=== PATIENT | female | born 1965 | race Caucasian/White ===

== ENCOUNTER → 2019-12-13 | Outpatient (CLI) | payer MEDICAID ==
--- NOTE | 2019-12-13 14:38 | CT ---
EXAMINATION TYPE: CT abdomen pelvis w con DATE OF EXAM: 12/13/2019 COMPARISON: None HISTORY: Left sided abdominal pain and microscopic hematuria. CT DLP: 1023 mGycm Automated exposure control for dose reduction was used. CONTRAST: CT scan of the abdomen pelvis is performed with IV Contrast, patient injected with 100 mL of Isovue M 300. FINDINGS- LUNG BASES- No significant abnormality is appreciated. LIVER/GB-hypodensities involving the liver are subcentimeter. 2 small to characterize. Statistically most likely related to cysts. There may be mild wall thickening involving the gallbladder correlate c linically. Report called to referring clinician. PANCREAS- No gross abnormality is seen. SPLEEN- No gross abnormality is seen. ADRENALS- No gross abnormality is seen. KIDNEYS/BLADDER-tiny hypodensities involving the left kidney upper pole too small to characterize. No hydronephrosis or nephrolithiasis. BOWEL-bowel gas pattern nonspecific. Retained fecal debris. LYMPH NODES- No greater than 1cm abdominal or pelvic lymph nodes areappreciated. OSSEOUS STRUCTURES- No significant abnormality is seen. OTHER- aorta of normal caliber. No free fluid. Mild atherosclerotic changes. IMPRESSION- 1. No hydronephrosis or nephrolithiasis. There is a subcentimeter left left renal lesion too small to characterize. 2. Gallbladder wall may be slightly thickened correlate with ultrasound.
== END | disposition home or self-care (01) ==
LOC: RADCTMAIN 12:34
PROVIDERS: ATTEND Family Medicine
DX: R10.12 Left upper quadrant pain (principal); R10.32 Left lower quadrant pain; R31.9 Hematuria, unspecified
CPT/HCPCS: 74177; Q9967 ×2

== ENCOUNTER → 2020-01-03 | Outpatient (CLI) | payer MEDICAID ==
--- NOTE | 2020-01-04 14:04 | CT ---
EXAMINATION TYPE: CT urogram wo/w con DATE OF EXAM: 01/03/2020 COMPARISON: 12/13/2019 INDICATION: HEMATURIA DLP: 2269.5 mGycm, Automated exposure control for dose reduction was used. CONTRAST: 100 mL of Isovue 300. Study performed without Oral Contrast TECHNIQUE: Axial images were obtained from above the diaphragm to the pubic rami in the axial plane a t 5 mm thick sections. Three-D Reconstructed form separately by the technologist and presented image s are reviewed on the computer in the coronal plane. FINDINGS: Limited CT sections are obtained the lung bases. The lung bases are clear. CT ABDOMEN: Liver: Normal Spleen: Normal Pancreas: Normal Adrenal glands: The adrenal glands are normal. Gallbladder: Normal Kidneys: No masses are evident. No hydronephrosis is present. No cysts are present. Delayed images were obtained through the kidneys, which remain unremarkable. Three-D reconstructed images are revie wed. Ureters follow a normal sequential caliber course and contour to the urinary bladder. The portio n of the urinary bladder filled with contrast appears unremarkable. Aorta: Normal Inferior vena cava: Normal. CT PELVIS: Diverticulosis without acute diverticulitis is within the sigmoid colon. Study is without oral contra st limiting the bowel evaluation. Appendix: Normal as visualized. Urinary bladder: Normal. Genitourinary structures: Uterus and ovaries are absent Osseous structures: No suspicious lytic or sclerotic lesions. IMPRESSIONS: 1. Kidneys, ureters and bladder on Three-D reconstructed images are unremarkable. No suspicious abno rmality to account for hematuria by CT urogram. 2. Diverticulosis without acute diverticulitis.
== END | disposition home or self-care (01) ==
LOC: RADCTMAIN 16:48
PROVIDERS: ATTEND Urology
DX: K57.90 Diverticulosis of intestine, part unspecified, without perforation or abscess without bleeding (principal); R31.0 Gross hematuria; Z88.0 Allergy status to penicillin
CPT/HCPCS: 74178; 74400; Q9967

== ENCOUNTER 2023-04-19 19:59 | Emergency (ER) | payer MEDICAID ==
[2023-04-19 20:30] VITALS: BP 148/87; PULSE 79; RESP 18; TEMP 98
[2023-04-19 21:46] LABS: Basophils % (A) 0 %; Eosinophils # (A) 0.1 k/uL (0-0.7); Eosinophils % (A) 1 %; HCT 42.7 % (34.0-46.0); HGB 14.4 gm/dL (11.4-16.0); Lymphocytes # (A) 2.4 k/uL (1.0-4.8); Lymphocytes % (A) 41 %; MCHC 33.7 g/dL (31.0-37.0); MCV 94.8 fL (80.0-100.0); Mean Platelet Volume 8.7; Monocytes # (A) 0.3 k/uL (0-1.0); Monocytes % (A) 6 %; Neutrophils % (A) 51 %; Platelet Count 222 k/uL (150-450); RBC 4.51 m/uL (3.80-5.40); RDW 12.3 % (11.5-15.5); WBC 5.8 k/uL (3.8-10.6)
[2023-04-19 22:14] LABS: ALT 17 U/L (4-34); AST 25 U/L (14-36); African American GFR (CKD) >90 (>60 ml/min/1.73 sqM); Albumin 4.4 g/dL (3.5-5.0); Alkaline Phosphatase 63 U/L (38-126); Amylase 82 U/L (30-110); Anion Gap 10 mmol/L; Blood Urea Nitrogen 10 mg/dL (7-17); Calcium 9.7 mg/dL (8.4-10.2); Carbon Dioxide 25 mmol/L (22-30); Chloride 103 mmol/L (98-107); Glucose 90 mg/dL (74-99); Lipase 124 U/L (23-300); Non-African American GFR(CKD) 87 (>60 ml/min/1.73 sqM); Potassium 3.9 mmol/L (3.5-5.1); Sodium 138 mmol/L (137-145); Total Bilirubin 0.6 mg/dL (0.2-1.3); Total Protein 7.6 g/dL (6.3-8.2)
--- NOTE | 2023-04-20 13:22 | CT ---
EXAM: CT Abdomen and Pelvis With Intravenous Contrast CLINICAL HISTORY: Right upper quadrant pain for 2 weeks. TECHNIQUE: Axial computed tomography images of the abdomen and pelvis with intravenous contrast. CTDI is 15.3 mGy and DLP is 698.2 mGy-cm. This CT exam was performed using one or more of the following dose reduction techniques: automated exposure control, adjustment of the mA and/or kV according to patient size, and/or use of iterative reconstruction technique. COMPARISON: No relevant prior studies available. FINDINGS: ABDOMEN: Liver: Few cysts. Gallbladder and bile ducts: Unremarkable. Pancreas: Unremarkable. Spleen: Unremarkable. Adrenals: Unremarkable. Kidneys and ureters: No hydronephrosis. Stomach and bowel: No bowel obstruction. No bowel wall thickening. Hyperemic bowel loops are seen. PELVIS: Appendix: No evidence of appendicitis. Bladder: Unremarkable. Reproductive: Unremarkable. ABDOMEN and PELVIS: Intraperitoneal space: Unremarkable. Bones/joints: No acute fractures. Soft tissues: Unremarkable. Vasculature: No abdominal aortic aneurysm. Lymph nodes: No enlarged lymph nodes. IMPRESSION: Hyperemic bowel loops are seen. Correlate with enteritis.
== END 2023-04-20 03:30 | disposition home or self-care (01) ==
LOC: EC 19:59
DX: K52.9 Noninfective gastroenteritis and colitis, unspecified (principal)
CPT/HCPCS: 99284 ×2; 36415; 93005; 80053; 82150; 83690; 85025; 74177; Q9967

== ENCOUNTER 2023-08-19 09:49 | Emergency (ER) | payer MEDICAID ==
[2023-08-19 10:02] VITALS: TEMP 97.8
--- NOTE | 2023-08-19 10:51 | ED ---
General Adult HPI - General Chief complaint: Abdominal Pain Stated complaint: Covid-upper abd pain Time Seen by Provider: 08/19/23 10:17 Source: patient, RN notes reviewed Mode of arrival: ambulatory Limitations: no limitations - History of Present Illness Initial comments: Patient is a pleasant 58-year-old female present to the emergency department wit h concerns for abdominal discomfort. Onset of symptoms was a couple of days ago. Patient was diagnosed with COVID-19 infection 4 days ago, symptoms onset 5 days ago. Patient was started on Paxlovid as well as steroids. Patient has epigastric/right upper abdominal discomfort. - Related Data Home Medications Medication Instructions Recorded Confirmed methIMAzole [Tapazole] 5 mg PO QAM 05/13/16 05/13/16 Allergies Allergy/AdvReac Type Severity Reaction Status Date / Time Penicillins Allergy Rash/Hives Verified 08/19/23 09:59 Review of Systems ROS Statement: Those systems with pertinent positive or pertinent negative responses have been documented in the HPI. ROS Other: All systems not noted in ROS Statement are negative. Constitutional: Denies: fever Eyes: Denies: eye pain ENT: Denies: ear pain Respiratory: Denies: cough Cardiovascular: Denies: chest pain Endocrine: Denies: fatigue Gastrointestinal: Reports: as per HPI, abdominal pain. Denies: nausea, vomiting, diarrhea, constipation Genitourinary: Denies: dysuria Past Medical History Past Medical History: Thyroid Disorder Additional Past Medical History / Comment(s): COLON POLYPS History of Any Multi-Drug Resistant Organisms: None Reported Past Surgical History: Section, Hysterectomy Additional Past Surgical History / Comment(s): OPENING UP TEAR DUCTS. Past Anesthesia/Blood Transfusion Reactions: Postoperative Nausea & Vomiting (PONV) Past Psychological History: No Psychological Hx Reported Smoking Status: Never smoker Past Alcohol Use History: Occasional Past Drug Use History: None Reported General Exam Limitations: no limitations General appearance: alert, in no apparent distress Head exam: Present: normocephalic Eye exam: Present: normal appearance Neck exam: Present: normal inspection Respiratory exam: Present: normal lung sounds bilaterally Cardiovascular Exam: Present: regular rate, normal rhythm GI/Abdominal exam: Present: soft, tenderness (Mild epigastric tenderness), normal bowel sounds. Absent: distended, pulsatile mass Extremities exam: Present: normal inspection Neurological exam: Present: alert Psychiatric exam: Present: normal affect, normal mood Skin exam: Present: normal color Course Vital Signs 08/19/23 08/19/23 09:57 12:11 Temperature 97.8 F Pulse Rate 80 50 L Respiratory 20 18 Rate Blood Pressure 125/75 142/78 O2 Sat by Pulse 98 97 Oximetry Medical Decision Making - Medical Decision Making Was pt. sent in by a medical professional or institution ([facility], PATCH W[employer]ER, urgent care, hospital, or retirement...) When possible be specific @ -No Did you speak to anyone other than the patient for history (EMS, parent, family, police, friend...)? What history was obtained from this source @ -No Did you review nursing and triage notes (agree or disagree)? Why? @ -I reviewed and agree with nursing and triage notes Were old charts reviewed (outside hosp., previous admission, EMS record, old EKG, old radiological studies, urgent care reports/EKG's, retirement records)? Report findings @ -No old charts were reviewed Differential Diagnosis (chest pain, altered mental status, abdominal pain women, abdominal pain men, vaginal bleeding, weakness, fever, dyspnea, syncope, headache, dizziness, GI bleed, back pain, seizure, CVA, palpatations, mental health, musculoskeletal)? @ -Differential Abdominal Pain Women: Appendicitis, Cholecystitis, diverticulosis, ischemic bowel, pancreatitis, hepatitis, UTI, gastroenteritis, AAA, incarcerated hernia, bowel obstruction, constipation, inflammatory bowel, hepatitis, peptic ulcer disease, splenic infarction, perforated viscus, vulvitis, ovarian torsion, PID, kidney stone, placenta abruption, this is not meant to be an all-inclusive list EKG interpreted by me (3pts min.). @ -As above X-rays interpreted by me (1pt min.). @ -None done CT interpreted by me (1pt min.). @ -CT scan does show wall thickening. Gallbladder. U/S interpreted by me (1pt. min.). @ -None done What testing was considered but not performed or refused? (CT, X-rays, U/S, labs)? Why? @ -None What meds were considered but not given or refused? Why? @ -None Did you discuss the management of the patient with other professionals (professionals i.e. [facility], PATCH WASHER, lab, RT, psych nurse, case management social worker, gearman, teacher, airframe technical officer, registered nurse hh case manager)? Give summary @ -Case discussed with on-call surgeon Dr. Onofre who did come evaluate patient. Was smoking cessation discussed for >3mins.? @ -No Was critical care preformed (if so, how long)? @ -No Were there social determinants of health that impacted care today? How? (Homelessness, low income, unemployed, alcoholism, drug addiction, transportation, low edu. Level, literacy, decrease access to med. care, penitentiary, rehab)? @ -No Was there de-escalation of care discussed even if they declined (Discuss DNR or withdrawal of care, Hospice)? DNR status @ -No What co-morbidities impacted this encounter? (DM, HTN, Smoking, COPD, CAD, Cancer, CVA, ARF, Chemo, Hep., AIDS, mental health diagnosis, sleep apnea, morbid obesity)? @ -None Was patient admitted / discharged? Hospital course, mention meds given and route, prescriptions, significant lab abnormalities, going to OR and other pertinent info. @ -Patient reevaluated and feels much better. Mild tenderness in evaluation. Patient updated on CT results. Patient states she does have some chronic g allbladder problems. Patient does not want to stay or have surgery at this point. Patient was seen by surgeon and still feels the same. Patient is requesting discharge home Undiagnosed new problem with uncertain prognosis? @ -No Drug Therapy requiring intensive monitoring for toxicity (Heparin, Nitro, Insulin, Cardizem)? @ -No Were any procedures done? @ -No Diagnosis/symptom? @ -Biliary colic Acute, or Chronic, or Acute on Chronic? @ -Acute Uncomplicated (without systemic symptoms) or Complicated (systemic symptoms)? @ -Default Side effects of treatment? @ -No Exacerbation, Progression, or Severe Exacerbation? @ -No Poses a threat to life or bodily function? How? (Chest pain, [place], [place], pneumonia, PE, COPD, DKA, ARF, appy, cholecystitis, CVA, Diverticulitis, Homicidal, Suicidal, threat to staff... and all critical care pts) @ -No - Lab Data Result diagrams: 08/19/23 11:04 08/19/23 11:04 Lab Results 08/19/23 08/19/23 08/19/23 Range/Units 11:04 11:04 11:04 WBC 8.8 (3.8-10.6) k/uL RBC 4.39 (3.80-5.40) m/uL Hgb 13.8 (11.4-16.0) gm/dL Hct 40.8 (34.0-46.0) % MCV 92.8 (80.0-100.0) fL MCH 31.3 (25.0-35.0) pg MCHC 33.7 (31.0-37.0) g/dL RDW 12.3 (11.5-15.5) % Plt Count 245 (150-450) k/uL MPV 8.8 Neutrophils % 90 % Lymphocytes % 6 % Monocytes % 3 % Eosinophils % 1 % Basophils % 0 % Neutrophils # 7.9 H (1.3-7.7) k/uL Lymphocytes # 0.5 L (1.0-4.8) k/uL Monocytes # 0.3 (0-1.0) k/uL Eosinophils # 0.1 (0-0.7) k/uL Basophils # 0.0 (0-0.2) k/uL PT 10.5 (10.0-12.5) sec INR 0.9 (<1.2) APTT 22.2 (22.0-30.0) sec Sodium 137 (137-145) mmol/L Potassium 3.7 (3.5-5.1) mmol/L Chloride 105 (98-107) mmol/L Carbon Dioxide 25 (22-30) mmol/L Anion Gap 7 mmol/L BUN 24 H (7-17) mg/dL Creatinine 0.84 (0.52-1.04) mg/dL Est GFR (CKD-EPI)AfAm 89 (>60 ml/min/1.73 sqM) Est GFR (CKD-EPI)NonAf 77 (>60 ml/min/1.73 sqM) Glucose 162 H (74-99) mg/dL Calcium 8.9 (8.4-10.2) mg/dL Total Bilirubin 0.3 (0.2-1.3) mg/dL AST 19 (14-36) U/L ALT 16 (4-34) U/L Alkaline Phosphatase 59 (38-126) U/L Total Protein 6.4 (6.3-8.2) g/dL Albumin 3.7 (3.5-5.0) g/dL Amylase 103 (30-110) U/L Lipase 474 H (23-300) U/L Disposition Clinical Impression: Biliary colic Disposition: HOME SELF-CARE Condition: Stable Instructions (If sedation given, give patient instructions): Abdominal Pain (ED), Biliary Colic (ED) Additional Instructions: Please do follow-up with primary care physician Monday. Please also follow-up with surgeon on Monday. Return for increased pain, fever, vomiting, worsening or changing symptoms or any other concerns. Is patient prescribed a controlled substance at d/c from ED?: No Referrals: Luis Kendall DO [Primary Care Provider] - 1-2 days Marcus Woody MD [STAFF PHYSICIAN] - 1-2 days Time of Disposition: 14:15
[2023-08-19] MEDS: SODIUM CHLORIDE 0.9% 500 ML 500 ML IV STA (11:08)
[2023-08-19] MEDS: FAMOTIDINE 20 MG/2 ML VIAL IV STA (11:08)
[2023-08-19 11:28] LABS: Basophils % (A) 0 %; Eosinophils # (A) 0.1 k/uL (0-0.7); Eosinophils % (A) 1 %; HCT 40.8 % (34.0-46.0); HGB 13.8 gm/dL (11.4-16.0); Lymphocytes # (A) 0.5 k/uL (1.0-4.8); Lymphocytes % (A) 6 %; MCH 31.3 pg (25.0-35.0); MCHC 33.7 g/dL (31.0-37.0); MCV 92.8 fL (80.0-100.0); Mean Platelet Volume 8.8; Monocytes # (A) 0.3 k/uL (0-1.0); Monocytes % (A) 3 %; Neutrophils # (A) 7.9 k/uL (1.3-7.7); Neutrophils % (A) 90 %; Platelet Count 245 k/uL (150-450); RBC 4.39 m/uL (3.80-5.40); RDW 12.3 % (11.5-15.5); WBC 8.8 k/uL (3.8-10.6)
--- NOTE | 2023-08-19 11:38 | CT ---
EXAMINATION TYPE: CT abdomen pelvis w con DATE OF EXAM: 08/19/2023 HISTORY: h/o covid, RUQ pain CT DLP: 681.7mGycm Automated Exposure Control for Dose Reduction was Utilized. CONTRAST: CT scan of the abdomen and pelvis is performed with IV Contrast, patient injected with 100 mL of Isov ue 300. COMPARISON: Prior CT April 20, 2023 FINDINGS: LUNG BASES: No significant abnormality is appreciated. LIVER/GB: Gallbladder now has edematous wall thickening. PANCREAS: No significant abnormality is seen. SPLEEN: No significant abnormality is seen. ADRENALS: No significant abnormality is seen. KIDNEYS: Subcentimeter low-density lesions in both kidneys are too small to further characterize but presumably benign.. BOWEL: No abnormal small or large bowel dilatation. Seuc-qx-abhuslcm wall thickening involving jejun al loops in the left abdomen is more prominent from prior study. UTERUS/ADNEXA: Uterus is surgically absent. LYMPH NODES: No greater than 1cm abdominal or pelvic lymph nodes are appreciated. OSSEOUS STRUCTURES: No significant abnormality is seen. OTHER: No significant additional abnormality is seen. IMPRESSION: 1. New edematous wall thickening in the gallbladder. Acute cholecystitis needs to be considered. Cons ider surgical evaluation or ultrasound evaluation based on clinical correlation. 2. Possible uncomplicated left-sided enteritis with findings slightly more prominent versus most rece nt prior CT. Correlate clinically.
[2023-08-19 11:48] LABS: ALT 16 U/L (4-34); AST 19 U/L (14-36); African American GFR (CKD) 89 (>60 ml/min/1.73 sqM); Albumin 3.7 g/dL (3.5-5.0); Alkaline Phosphatase 59 U/L (38-126); Amylase 103 U/L (30-110); Anion Gap 7 mmol/L; Blood Urea Nitrogen 24 mg/dL (7-17); Calcium 8.9 mg/dL (8.4-10.2); Carbon Dioxide 25 mmol/L (22-30); Chloride 105 mmol/L (98-107); Glucose 162 mg/dL (74-99); Lipase 474 U/L (23-300); Non-African American GFR(CKD) 77 (>60 ml/min/1.73 sqM); Potassium 3.7 mmol/L (3.5-5.1); Sodium 137 mmol/L (137-145); Total Bilirubin 0.3 mg/dL (0.2-1.3); Total Protein 6.4 g/dL (6.3-8.2)
[2023-08-19 12:00] LABS: INR 0.9 (<1.2); Partial Thromboplastin Time 22.2 sec (22.0-30.0); Prothrombin Time 10.5 sec (10.0-12.5)
[2023-08-19 12:26] VITALS: RESP 18
--- NOTE | 2023-08-19 13:24 | P.GSCN ---
History of Present Illness Consult date: 08/19/23 Reason for Consult: Epigastric pain, thickened gallbladder wall Requesting physician: Brando Cortez History of present illness: The patient is here with her who has acute rib fractures and the patient herself has epigastric pain. She was dx'd with Covid on Tues and is on antiviral and prednisone. Her pain is epigastric. No nausea or vomiting. The CT shows a thickened gallbladder wall. Past Medical History Past Medical History: Thyroid Disorder Additional Past Medical History / Comment(s): COLON POLYPS History of Any Multi-Drug Resistant Organisms: None Reported Past Surgical History: Section, Hysterectomy Additional Past Surgical History / Comment(s): OPENING UP TEAR DUCTS. Past Anesthesia/Blood Transfusion Reactions: Postoperative Nausea & Vomiting (PONV) Past Psychological History: No Psychological Hx Reported Smoking Status: Never smoker Past Alcohol Use History: Occasional Past Drug Use History: None Reported Medications and Allergies Home Medications Medication Instructions Recorded Confirmed Type methIMAzole [Tapazole] 5 mg PO QAM 05/13/16 05/13/16 History Allergies Allergy/AdvReac Type Severity Reaction Status Date / Time Penicillins Allergy Rash/Hives Verified 08/19/23 09:59 Surgical - Exam Vital Signs Temp Pulse Resp BP Pulse Ox 97.8 F 80 20 125/75 98 08/19/23 09:57 08/19/23 09:57 08/19/23 09:57 08/19/23 09:57 08/19/23 09:57 - Abdomen Abdomen: tender (in epigastrium) Results - Labs 08/19/23 11:04 08/19/23 11:04 Abnormal Lab Results - Last 24 Hours (Table) 08/19/23 08/19/23 Range/Units 11:04 11:04 Neutrophils # 7.9 H (1.3-7.7) k/uL Lymphocytes # 0.5 L (1.0-4.8) k/uL BUN 24 H (7-17) mg/dL Glucose 162 H (74-99) mg/dL Lipase 474 H (23-300) U/L Diabetes panel 08/19/23 Range/Units 11:04 Sodium 137 (137-145) mmol/L Potassium 3.7 (3.5-5.1) mmol/L Chloride 105 (98-107) mmol/L Carbon Dioxide 25 (22-30) mmol/L BUN 24 H (7-17) mg/dL Creatinine 0.84 (0.52-1.04) mg/dL Glucose 162 H (74-99) mg/dL Calcium 8.9 (8.4-10.2) mg/dL AST 19 (14-36) U/L ALT 16 (4-34) U/L Alkaline Phosphatase 59 (38-126) U/L Total Protein 6.4 (6.3-8.2) g/dL Albumin 3.7 (3.5-5.0) g/dL Calcium panel 08/19/23 Range/Units 11:04 Calcium 8.9 (8.4-10.2) mg/dL Albumin 3.7 (3.5-5.0) g/dL Pituitary panel 08/19/23 Range/Units 11:04 Sodium 137 (137-145) mmol/L Potassium 3.7 (3.5-5.1) mmol/L Chloride 105 (98-107) mmol/L Carbon Dioxide 25 (22-30) mmol/L BUN 24 H (7-17) mg/dL Creatinine 0.84 (0.52-1.04) mg/dL Glucose 162 H (74-99) mg/dL Calcium 8.9 (8.4-10.2) mg/dL Adrenal panel 08/19/23 Range/Units 11:04 Sodium 137 (137-145) mmol/L Potassium 3.7 (3.5-5.1) mmol/L Chloride 105 (98-107) mmol/L Carbon Dioxide 25 (22-30) mmol/L BUN 24 H (7-17) mg/dL Creatinine 0.84 (0.52-1.04) mg/dL Glucose 162 H (74-99) mg/dL Calcium 8.9 (8.4-10.2) mg/dL Total Bilirubin 0.3 (0.2-1.3) mg/dL AST 19 (14-36) U/L ALT 16 (4-34) U/L Alkaline Phosphatase 59 (38-126) U/L Total Protein 6.4 (6.3-8.2) g/dL Albumin 3.7 (3.5-5.0) g/dL Assessment and Plan Assessment: I reviewed various etiologies for a thickened gallbladder wall. Acute cholecystitis is high on that list. An ultrasound of the gallbladder would be the next imaging picture. WBC and LFTs normal. Gallstones plus thickened wall equals surgery in very near future. She is pressed to go home with her and the ribs fractures. I recommend that she contact her primary physician for an ultrasound of the gallbladder, if that cn be done in a short period of time. I also recommended that if the pain persists to Monday AM, she should just go to the ED and describe what has gone on and that the symptoms have not resolved. Treatment should be offered.
[2023-08-19 14:42] VITALS: BP 122/70; PULSE 54
== END 2023-08-19 14:30 | disposition home or self-care (01) ==
LOC: EC 09:49
DX: K80.62 Calculus of gallbladder and bile duct with acute cholecystitis without obstruction (principal); E07.9 Disorder of thyroid, unspecified; Z79.890 Hormone replacement therapy; Z88.0 Allergy status to penicillin
CPT/HCPCS: 99284 ×2; 96374 ×2; 96361 ×3; 36415; 80053; 82150; 83690; 85025; 85610; 85730; 74177; J3490; Q9967

== ENCOUNTER 2024-11-08 12:59 | Day surgery (SDC) | payer MEDICAID ==
[2024-11-08 13:54] VITALS: RESP 16; TEMP 96.7
[2024-11-08] MEDS: LACTATED RINGERS 1,000 ML IV SCH (13:55)
[2024-11-08] MEDS: IV FLUID CONTINUATION 1,000 ML IV ONE ×2 (13:55→14:09)
[2024-11-08] MEDS ORDERED: PROPOFOL 10 MG/ML 20 ML VIAL IV ONE (14:10)
--- NOTE | 2024-11-08 14:24 | P.PCN ---
Date of Procedure: 11/08/24 Procedure(s) Performed: BRIEF HISTORY: Patient is a 59-year-old pleasant white female scheduled for an elective colonoscopy as a part of screening for colon cancer. PROCEDURE PERFORMED: Colonoscopy. PREOPERATIVE DIAGNOSIS: Screening for colon cancer. IV sedation per Anesthesia. PROCEDURE: After informed consent was obtained, the patient, was brought into the endoscopy unit. IV sedation was administered by Anesthesia under continuous monitoring. Digital rectal examination was normal. Initially the Olympus CF-160 flexible video colonoscope was then inserted in the rectum, gradually advanced into the cecum without any difficulty. Careful examination was performed as the scope was gradually being withdrawn. Ileocecal valve and the appendiceal orifice were visualized and appeared normal. Prep was excellent. Mucosa of the cecum, ascending colon, transverse colon, descending colon, sigmoid colon, and rectum appeared normal. Retroflexion was performed in the rectum and no lesions were seen. The patient tolerated the procedure well. IMPRESSION: Normal-appearing colon from rectum to cecum with no evidence of colorectal neoplasia. RECOMMENDATIONS: Findings of this examination were discussed with the patient well as a family. She was advised to have repeat screening colonoscopy in 10 y ears.
[2024-11-08 14:31] VITALS: BP 89/53; PULSE 81
== END 2024-11-08 15:09 | disposition home or self-care (01) ==
LOC: ORWHC2ENDO 12:59
PROVIDERS: ATTEND Internal Medicine Gastroenterology
DX: Z12.11 Encounter for screening for malignant neoplasm of colon (principal); E07.9 Disorder of thyroid, unspecified; F41.9 Anxiety disorder, unspecified; Z88.0 Allergy status to penicillin
CPT/HCPCS: 45378; J2704